=== PATIENT | female | born 1945 | race Caucasian/White ===

== ENCOUNTER → 2017-12-22 | Outpatient (CLI) | payer OTHER ==
[~2017-12-22] MED LIST: ASPI81TA82 PO; D31000CA PO; HYDR1SOL3 PO; KELP100T PO; THYR15 PO
--- NOTE | 2017-12-23 10:13 | RSPPFT ---
DATE OF PROCEDURE: 12/22/17 COMMENTS: VOLUMES DYNAMIC: FVC mildly reduced; FEV1 moderately reduced. STATIC: TLC, RV and FRC normal. FLOWS: FEV1% moderately reduced; FEF 25-75 severely reduced. DIFFUSION: Severely reduced. FLOW VOLUME LOOP: Pattern of variable intrathoracic airways obstruction. IMPRESSION: Moderate to severe obstructive ventilatory defect with reduction in diffusion consistent with emphysema. There is improvement post-bronchodilator.
== END ==
LOC: PHRSP 09:41
PROVIDERS: ATTEND Internal Medicine
DX: J44.9 Chronic obstructive pulmonary disease, unspecified (principal)
CPT/HCPCS: 36600; 82805; 94060; 94618; 94729

== ENCOUNTER 2017-12-27 11:16 | Inpatient (IN) | payer OTHER, MEDICARE ==
--- NOTE | 2017-12-21 09:16 | MB ---
cc: ETIENNE WALKER MD, DANIEL WHITE, R. STEVEN M.D. DATE OF CONSULTATION 12/15/2017 HISTORY Ms. Johnson is a 72-year-old white female with a history of squamous cell carcinoma of the larynx diagnosed in 2011. That was treated with chemoradiotherapy and recent oncology follow-up indicates that remains in remission. In 2016, she presented with a left lower lobe lesion identified as adenocarcinoma and she also had a right midlung nodule which was felt to be metastatic disease, although it was not biopsied. She was begun on palliative systemic chemotherapy and then immunotherapy. She now presents with follow-up CT and PET scan revealing a left perihilar mass suggestive of recurrent disease although inflammation or scarring cannot be excluded. She also continues to have some mild uptake in the right midlung laterally again somewhat suspicious for malignancy. No uptake is noted in the mediastinum. The patient continues to smoke a half a pack to one pack of cigarettes a day and has smoked all of her adult life 50-60 pack-years. I have no formal documentation of COPD, emphysema, although the patient says she does have the disease. She uses a Ventolin inhaler on occasion, but really does not complain of significant shortness of breath. She has had cough, but no purulent sputum or hemoptysis. No chest pain. ADDITIONAL PAST HISTORY 1. PAD 2. Osteoporosis 3. Hypothyroidism SOCIAL HISTORY She is single, lives alone. Smoking noted. Denies any alcohol use. She has two dogs at home. MEDICATIONS 1. Thyroid replacement 2. Occasional baby aspirin REVIEW OF SYSTEMS No headache or visual changes. No lightheadedness. No anginal chest pain. No prior cardiac history. No swelling in her legs. PHYSICAL EXAMINATION This is a frail elderly white female looking older than her stated age. VITAL SIGNS: Blood pressure 108/50, pulse 70, temps 97, RR 18, sat 96% room air. HEAD, EYES, EARS, NOSE, AND THROAT: Sclerae anicteric. Pharynx is clear. NECK: No adenopathy in the neck or supraclavicular region. CHEST: Scattered congestion without wheezing. CARDIAC: Regular rhythm. No harsh murmur. EXTREMITIES: No edema or cyanosis. DISCUSSION Ms. 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 She is now suspected of having recurrence possibly in both lungs or in the left hilum, although post-treatment changes are possible. I have suggested we proceed with a diagnostic bronchoscopy. I have reviewed the procedure in simple terms so that she understands what it involves and what the potential complications are including, although not limited to, anesthetic complications, pneumothorax or bleeding. I have requested pulmonary functions prior to the procedure to establish her baseline degree of emphysema. I have also asked her to stop using any aspirin. The patient is agreeable to proceed recognizing risks and benefits. R. MD MANNY Martin/DONNA /10:45 AM /8:39 AM
[2017-12-27] VITALS (8 sets, daily range): BP systolic 113–147; BP diastolic 57–70; PULSE 55–62; RESP 20; TEMP 97.5–98; O2SAT 92–100
[~2017-12-27] VITALS: Ht 165.1 cm; Wt 44.5 kg
[~2017-12-27 11:16] MED LIST changes: -HYDR1SOL3 PO; -THYR15 PO
[2017-12-27] MEDS ORDERED: THYR15 PO (12:06)
[2017-12-27] MEDS ORDERED: HYDR1SOL3 PO (12:42)
[2017-12-27] MEDS ORDERED: RESP: LIDOCAINE HCL 4% TOPICAL 4 ML KIT NEB NEB SCH (12:45)
[2017-12-27] MEDS ORDERED: RESP: ALBUTEROL 2.5 MG/3 ML NEB (SCH) INH (12:45)
[2017-12-27] MEDS ORDERED: SODIUM CHLOR 0.45% 1000 ML INJ 1,000 ML IV SCH ×2 (13:00→15:30)
[2017-12-27] MEDS ORDERED: RESP: LIDOCAINE HCL 4% PF 5 ML NEB ONE (13:26)
[2017-12-27] MEDS ORDERED: RESP: ALBUTEROL CONC 2.5 MG/0.5 ML NEB ONE (13:26)
[2017-12-27] MEDS ORDERED: RESP: ALBUTEROL 2.5 MG/IPRATROPIUM 0.5 MG NEB (PRN) NEB (15:15)
[2017-12-27] MEDS ORDERED: DO NOT ADM ANY ANTICOAGULANT DRUGS PRN (15:42)
[2017-12-27] MEDS ORDERED: LORazepam 2 MG/ML VIAL ONE (15:51)
[2017-12-27] MEDS ORDERED: MIDAZOLAM HCL 2 MG/2 ML VIAL ONE (15:53)
[2017-12-27] MEDS ORDERED: methylPREDNISolone SOD SUCC 40 MG/1 ML VIAL ONE (15:56)
[2017-12-27] MEDS ORDERED: RESP: ALBUTEROL 2.5 MG/IPRATROPIUM 0.5 MG NEB (SCH) NEB (16:00)
--- NOTE | 2017-12-27 16:27 | RADRPT ---
EXAM DATE/TIME: 12/27/2017 15:31 [facility] COMPARISON: CHEST EXPIRATION ONLY, May 20, 2016, 11:11. INDICATIONS : Post biopsy. MEDICAL HISTORY : Chronic obstructive pulmonary disease. SURGICAL HISTORY : Tonsillectomy. ENCOUNTER: Initial ACUITY: 1 day PAIN SCORE: 0/10 LOCATION: Bilateral chest FINDINGS: A single view of the chest demonstrates bilateral mixed interstitial and air space process, right gre ater than left. Blunting of both costophrenic angles possibly represent small effusions, slightly mor e prominent leftward. No pneumothorax. Right IJ Fnjetp-c-[id number] catheter with the tip projecting over t he central venous system. Heart size is normal. S-shaped scoliosis of the thoracolumbar spine.. CONCLUSION: 1. No pneumothorax post biopsy. 2. Mixed interstitial and airspace process bilaterally on the right worse on left. Possible small alysa ateral pleural effusions. Jose Alberto Schumacher MD on December 27, 2017 at 16:22 Board Certified Radiologist. This report was verified electronically.
--- NOTE | 2017-12-27 16:41 | MB ---
cc: Chris FRANCISCO DATE OF CONSULTATION: 12/27/2017 REASON FOR CONSULTATION: HISTORY OF PRESENT ILLNESS: Ms. oJhnson is a 72-year-old white female with a history of adenocarcinoma of the left lung in 2016. She presented today as an outpatient for a diagnostic bronchoscopy. The procedure went well but post extubation the patient had difficulty breathing. She received IV corticosteroids and an aerosolized bronchodilator but will require additional attention including BiPAP to stabilize her. Anesthesia is here in attendance and I have spoken to Dr. Oneal to admit her to the Intensive Care Unit for observation. Prior history is all outlined in her previous notes. Her procedure today was otherwise uncomplicated. No unusual bleeding. Chest x-ray is pending at the present time. The patient will be admitted for observation by critical care medicine. I have spoken to Dr. Oneal. I have also put in initial orders including BiPAP, a stat chest x-ray, aerosolized bronchodilator, corticosteroids and IV saline. Further diagnostic and/or therapeutic range will depend on her ongoing clinical course. MD MANNY Chance/GAL /3:29 PM /4:07 PM
[2017-12-27 16:44] LABS: AUTOMATED NEUTROPHIL # 7.4 TH/MM3 (1.8-7.7); BASOPHIL % 0.3 % (0.0-2.0); EOSINOPHIL % 0.3 % (0.0-4.0); HEMATOCRIT 34.4 % (35.0-46.0); HEMOGLOBIN 11.7 GM/DL (11.6-15.3); LYMPH % 6.9 % (9.0-44.0); LYMPHOCYTE # 0.6 TH/MM3 (1.0-4.8); MEAN CELL VOLUME 97.4 FL (80.0-100.0); MEAN CORPUSCULAR HEMOGLOBIN 33.1 PG (27.0-34.0); MEAN PLATELET VOLUME 6.1 FL (7.0-11.0); MONO % 2.6 % (0.0-8.0); MONOCYTE # 0.2 TH/MM3 (0-0.9); NEUT % 89.9 % (16.0-70.0); PLATELET COUNT 148 TH/MM3 (150-450); RED BLOOD COUNT 3.54 MIL/MM3 (4.00-5.30); RED CELL DISTRIBUTION WIDTH 17.8 % (11.6-17.2); WHITE BLOOD COUNT 8.3 TH/MM3 (4.0-11.0)
[2017-12-27] MEDS ORDERED: MISCELLANEOUS NURSING INFORMATION XX SCH (16:45)
[2017-12-27] MEDS ORDERED: RESP: ALBUTEROL 2.5 MG/IPRATROPIUM 0.5 MG NEB (PRN) INH (16:45)
[2017-12-27] MEDS ORDERED: CHLORHEXIDINE GLUCONATE 2 % 1 PACK (2 CLOTHS) TOP PRN (16:45)
[2017-12-27] MEDS: methylPREDNISolone SOD SUCC 40 MG/1 ML VIAL IV PUSH SCH (17:13)
[2017-12-27] MEDS: LORazepam 2 MG/ML VIAL IV PRN ×2 (17:14→20:55)
[2017-12-27 17:28] LABS: BICARBONATE 24.9 MEQ/L (21.0-32.0); CALCIUM 8.4 MG/DL (8.5-10.1); CREATININE 1.08 MG/DL (0.50-1.00); MAGNESIUM 2.1 MG/DL (1.5-2.5)
[2017-12-27 17:29] LABS: PHOSPHORUS 3.8 MG/DL (2.5-4.9)
[2017-12-27] MEDS ORDERED: LEVOFLOXACIN 500 MG TAB PO SCH (17:30)
--- NOTE | 2017-12-27 17:33 | MH ---
cc: VIVIEN GRACE M.D. DATE OF : 1945 DATE OF ADMISSION: 12/27/2017 ADMITTING DIAGNOSIS: HISTORY OF PRESENT ILLNESS: The patient is a 72 year-old female with a past medical history of squamous cell carcinoma of the larynx, diagnosed in 2011, status post chemotherapy. In 2015, the patient was diagnosed with adenocarcinoma of the left lung and begun on palliative systemic chemotherapy and then immunotherapy. She had a follow-up CT and PET scan showing left perihilar mass suggestive of recurrent disease. She underwent fiberoptic bronchoscopy with bronchial washing as an outpatient by Dr. Luciano. The patient was intubated for the procedure and she was extubated. However, she was in respiratory distress and the patient was given Decadron and a bronchodilator treatment. Also she was placed on BiPap 15/5 with 50% FIO2. We were asked to admit the patient to [facility] for closer observation, given her respiratory status. PAST MEDICAL HISTORY: Significant for likely severe COPD, hypothyroidism, osteoporosis, peripheral arterial disease, adenocarcinoma of the left lung, squamous cell carcinoma of the larynx, fibromyalgia, history of bipolar disorder. SOCIAL HISTORY The patient lives alone, active smoker where she smokes half a pack to one pack of cigarettes a day and has at least 50 pack-year history of smoking. No history of alcohol use. MEDICATIONS Occasional baby aspirin, thyroid supplement. FAMILY HISTORY Noncontributory to history of present illness. REVIEW OF SYSTEMS: As per HPI. The rest of the review of systems is limited as the patient is a poor historian. PHYSICAL EXAMINATION Frail elderly white female on a BiPap in mild distress. Vital signs: Afebrile, pulse of 69, blood pressure 157/68, saturation 92% on BiPap 15/5, 50% FIO2, respiratory rate of 25. HEENT: Atraumatic, normocephalic pupil equal, round and reactive to light and accommodation. Extraocular movements intact. Conjunctiva pink. Nonicteric sclerae. Oral mucosa within normal. Neck: Supple. No JVD, adenopathy or thyromegaly. Trachea midline. Cardiovascular: Regular rate and rhythm. Normal S1-S2. No murmurs, rubs or gallops noted. Pulmonary: Bilateral equal entry overall diminished. No crackles or wheezing. Abdomen: Soft, nontender, no distension. Positive bowel sounds. Extremities: No cyanosis, clubbing or edema. Neuro: No focal sensory deficit. LABORATORY DATA None available. RADIOLOGIC STUDIES: Chest x-ray post bronch showed no pneumothorax, mixed interstitial and air space opacity bilaterally. IMPRESSION 1. Acute hypoxemic and respiratory insufficiency. 2. COPD exacerbation. 3. Bilateral interstitial infiltrates. 4. Adenocarcinoma of the lung. 5. Squamous cell carcinoma of the larynx. 6. Active tobacco use. 7. Hypothyroidism. 8. History of osteoporosis. 9. Peripheral arterial disease. RECOMMENDATIONS: 1)Monitor neuro status closely and avoid any sedatives. 2)Continue with oxygen and maintain sats above 92%. Bronchodilators in the form of DuoNeb q. 4 plus q. 2 p.r.n. for shortness of breath. Continue with Solu-Medrol 40 mg IV q. 6. 3) Noninvasive positive pressure ventilation. Check ABG now. If there is any worsening in respiratory status or clinical condition, will proceed with intubation and mechanical ventilation. Patient is status post bronchoscopy with bronchial washing by Dr. Luciano. Follow up on cultures. 4)Monitor heart rate and blood pressure. Maintain MAP greater than 65 mmHg. 5)Monitor renal function I&Os, and electrolyte replacement per protocol. DC IV fluids. 6)Keep n.p.o. for now until respiratory status improves and will place on Pepcid 20 mg IV q. 12 for GI prophylaxis. 7)Place on empiric antibiotics in the form of Levaquin and monitor for signs of infections. 8)Place on sliding scale insulin, Accu-Cheks for glycemic control as the patient will be on IV steroids. 9)GI prophylaxis with Pepcid and DVT prophylaxis with SCDs. Will check labs now which include CBC and BMP. Case discussed with Dr. Luciano. MD ELIZABETH Mckinney/GAL /4:25 PM /4:42 PM KATIE
[2017-12-27] MEDS: RESP: ALBUTEROL 2.5 MG/IPRATROPIUM 0.5 MG NEB (SCH) INH ×2 (20:51→23:25)
[2017-12-27] MEDS: FAMOTIDINE 20 MG/2 ML VIAL IV PUSH SCH (20:55)
--- NOTE | 2017-12-27 21:25 | MP ---
cc: Noe FRANCISCO DATE OF SURGERY 12/27/17 PROCEDURE Bronchoscopy INDICATION Recurrent lung cancer. After informed consent was obtained, the patient underwent diagnostic bronchoscopy with general anesthesia as well as ultrasound. Examination of the mid to distal trachea was unremarkable. Examination of the right main stem bronchus, right upper lobe, lower lobes and middle lobe were all unremarkable other than scattered secretions. Examination of the left main stem bronchus down to the takeoff of the left upper lobe was normal and the left upper lobe appeared patent with no endobronchial pathology. The left lower lobe bronchus was markedly narrowed, but it was extrinsic with no endobronchial pathology. The scope was easily passed through the area of stricture and the left lower lobe orifices were all examined and normal. Using fluoroscopic guidance, the medial basilar segment of the left lower lobe was washed extensively and brushed for cytology. This was an area that was abnormal on the CT scan. Reexamination of the right upper lobe was normal endoscopically. There was a small nodular density peripherally in the right upper lobe, so again using fluoroscopic guidance the area was identified. Washings were obtained for cytology and culture and bronchial brushings were also obtained and submitted for cytology. The patient then underwent ultrasound examination of the right paratracheal, subcarinal, left paratracheal and left hilar regions. There were a few small lymph nodes noted. No particularly enlarged nodes, certainly none over 1 cm in size. I was able to biopsy the subcarinal lymph node on the right, the left paratracheal lymph node and station 10 on the left hilar region and submitted those for cytology. She tolerated the procedure well. There was no active bleeding. She is being recovered and prepared for extubation and transferred to recovery. A chest x-ray will be obtained since a number of brushings and biopsies were obtained. MD MANNY Chance/ /3:03 PM /9:12 PM
[2017-12-28] VITALS (11 sets, daily range): BP systolic 107–135; BP diastolic 54–62; PULSE 54–75; RESP 28–39; TEMP 97.8–98.3; O2SAT 91–100
[2017-12-28] MEDS: methylPREDNISolone SOD SUCC 40 MG/1 ML VIAL IV PUSH SCH ×3 (00:21→12:00)
[2017-12-28] MEDS: RESP: ALBUTEROL 2.5 MG/IPRATROPIUM 0.5 MG NEB (SCH) INH ×3 (03:53→11:42)
[2017-12-28] MEDS ORDERED: CHLORHEXIDINE GLUCONATE 2 % 1 PACK (2 CLOTHS) TOP SCH (04:00)
[2017-12-28 05:23] LABS: BICARBONATE 24.6 MEQ/L (21.0-32.0); CALCIUM 8.3 MG/DL (8.5-10.1); CREATININE 0.98 MG/DL (0.50-1.00)
[2017-12-28 05:44] LABS: AUTOMATED NEUTROPHIL # 6.8 TH/MM3 (1.8-7.7); BASOPHIL % 0.1 % (0.0-2.0); HEMATOCRIT 33.1 % (35.0-46.0); HEMOGLOBIN 11.4 GM/DL (11.6-15.3); LYMPHOCYTE # 0.2 TH/MM3 (1.0-4.8); MEAN CELL VOLUME 96.4 FL (80.0-100.0); MEAN CORPUSCULAR HEMOGLOBIN 33.2 PG (27.0-34.0); MEAN CORPUSCULAR HGB CONC 34.4 % (32.0-36.0); MEAN PLATELET VOLUME 6.6 FL (7.0-11.0); MONO % 0.8 % (0.0-8.0); MONOCYTE # 0.1 TH/MM3 (0-0.9); NEUT % 96.1 % (16.0-70.0); PLATELET COUNT 156 TH/MM3 (150-450); RED BLOOD COUNT 3.43 MIL/MM3 (4.00-5.30); RED CELL DISTRIBUTION WIDTH 17.5 % (11.6-17.2)
[2017-12-28] MEDS ORDERED: ALPRAZolam 0.5 MG TAB PO PRN (08:45)
[2017-12-28] MEDS: FAMOTIDINE 20 MG/2 ML VIAL IV PUSH SCH (08:45)
[2017-12-28] MEDS ORDERED: NICOTINE 21 MG/24 HR PATCH T-DERMAL SCH (09:00)
--- NOTE | 2017-12-28 10:23 | HHI.CCPN ---
Subjective Remarks/Hospital Course 12/28: patient insisting on leaving against medical advice. patient remains on 2L o2 by NC. weaned off BiPAP overnight. Objective Vital Signs Date Time Temp Pulse Resp B/P (MAP) Pulse Ox O2 Delivery O2 Flow Rate FiO2 12/28/17 09:00 75 12/28/17 08:00 98.3 37 128/61 (83) 91 12/28/17 07:53 Nasal Cannula 4.00 12/27/17 19:55 50 Intake and Output 12/28/17 12/28/17 12/29/17 08:00 16:00 00:00 Intake Total 100 ml Output Total 401 ml Balance -301 ml Result Diagram: 12/28/17 0351 12/28/17 0351 Other Results Laboratory Tests Test 12/27/17 16:15 12/27/17 20:32 Blood Gas Puncture Site RT RADIAL RT RADIAL Blood Gas Patient Temperature 98.6 98.6 Blood Gas HCO3 24 mmol/L (22-26) 24 mmol/L (22-26) Blood Gas Base Excess -2.9 mmol/L (-2-2) -1.1 mmol/L (-2-2) Blood Gas Oxygen Saturation 81 % (90-100) 90 % (90-100) Arterial Blood pH 7.24 (7.380-7.420) 7.36 (7.380-7.420) Arterial Blood Partial Pressure CO2 57 mmHg (38-42) 43 mmHg (38-42) Arterial Blood Partial Pressure O2 58 mmHG (61-120) 73 mmHg (61-120) Arterial Blood Oxygen Content 12.5 Vol % (12.0-20.0) 14.0 Vol % (12.0-20.0) Arterial Blood Carboxyhemoglobin 6.0 % (0-4) 3.2 % (0-4) Arterial Blood Methemoglobin 0.5 % (0-2) 1.4 % (0-2) Blood Gas Hemoglobin 11.1 G/DL (12.0-16.0) 11.0 G/DL (12.0-16.0) Oxygen Delivery Device BiPAP NASAL CANNULA Blood Gas Ventilator Setting 12/+5PEEP Blood Gas Inspired Oxygen 50 % Blood Gas Liter Flow 3 L/M Objective Remarks gen: elderly female, sitting in bed, visibly upset. heent: perrl. mucous membranes moist. neck: no jvd. trachea midline. chest: unlabored. equal chest rise. 2L nc. spo2 94% cv: rrr. sinus. abd: soft, nontender, nondistended, no guarding. extr: no peripheral edema. neuro: RASS +1. upset. no focal deficits. A/P Assessment and Plan Assessment: 72yF post-procedure day 1 s/p bronch with biopsy with andrzej- procedural respiratory failure requiring NIPPV. clinically improving. will discuss with Dr. Luciano. if patient cannot wait for Dr. luciano, she is free to leave [facility], though we recommend her stay until she can be fully evaluated by Dr. Luciano. Acute hypoxic respiratory failure requiring non-invasive positive pressure ventilation Tobacco Abuse COPD - wean o2 for goal spo2 > 90% - OOB with assist - regular diet - tobacco cessation information given. - further management per Dr. Luciano. Geoff Hobbs MD Dec 28, 2017 10:23
[2017-12-28] MEDS ORDERED: REMOVE OLD NICODERM (NICOTINE) PATCH T-DERMAL SCH (21:00)
--- NOTE | 2017-12-28 22:17 | EKG ---
Date Performed: 12/27/2017 Time Performed: 12:07:50 PTAGE: 72 years EKG: SINUS BRADYCARDIA NONSPECIFIC T-WAVE ABNORMALITY BORDERLINE ECG PREVIOUS TRACING : 01/23/2013 07.59 Since the prior tracing, there has been no significant rubio DOCTOR: Farooq Zuniga Interpretating Date/Time 12/28/2017 22:15:53
--- NOTE | 2017-12-29 13:20 | RADRPT ---
EXAM DATE/TIME: 12/27/2017 14:03 [facility] COMPARISON: CT NEEDLE BIOPSY LUNG, LEFT, May 20, 2016, 8:41. INDICATIONS : Bronchoscopy with brushings. MEDICAL HISTORY : Chronic obstructive pulmonary disease. SURGICAL HISTORY : Tonsillectomy. ENCOUNTER: Initial ACUITY: 1 day PAIN SCORE: Non-responsive. LOCATION: Bilateral chest FINDINGS: Single intraprocedural fluoroscopic image of endobronchial biopsy. Endobronchial biopsy device is not ed in a subsegmental branch of the left lower lobe. CONCLUSION: 1. Endobronchial biopsy, as above. Blas Alonso MD on December 29, 2017 at 13:16 Board Certified Radiologist. This report was verified electronically.
--- NOTE | 2018-01-02 08:14 | MD ---
cc: Noe FRANCISCO M.D. ADMISSION DATE: 12/28/2017 DISCHARGE DATE: 12/28/2017 HISTORY Ms. Johnson is a 72-year-old white female admitted overnight for observation after bronchoscopy. She has severe COPD and had smoked up to the time of admission yesterday and did well with her bronchoscopy, those notes were dictated, but was hypoxic and agitated afterward so we kept her overnight on BiPap for observation. This morning although she is agitated, she is awake, alert, oriented and simply wants to go home. I spoke to her daughter. Apparently this is not unusual behavior for her. HOSPITAL COURSE All of the bronchoscopy reports are pending. She did have a chest x-ray post bronchoscopy which revealed no evidence of pneumothorax and some a mixed interstitial and air space disease which is chronic. PHYSICAL EXAMINATION GENERAL: This morning she is awake, alert, appropriate, although she is agitated and wants to leave. VITAL SIGNS: A blood pressure is 120/60, respirations are 24, O2 sat on room air is now 95% and she is afebrile. CHEST: Clear. No significant wheezing or congestion. CARDIOVASCULAR: Regular heart rhythm. No edema. CONDITION ON DISCHARGE Ms. Johnson is stable post-observation after bronchoscopy yesterday. DISCHARGE INSTRUCTIONS I spoke to her daughter because my biggest concern is that she will go back home and smoke again and in this particular condition that could be harmful. The daughter understands that, will try to support her mother in this respect and I will see her back in the office next week for her follow-up reports. She may also benefit from treatment of the underlying COPD, although obviously stopping smoking as the primary point to address in but we will discuss that when I see her back in the office next week. I instructed the patient and her daughter that if she has any difficulty prior to followup, particularly more shortness of breath, either to call or to come back directly to the emergency room. I also reviewed this plan with Critical Care Medicine who watched her overnight. Noe Francisco MD RSHo/BETTE /12:17 PM /8:05 AM
== END 2017-12-28 13:55 | disposition home or self-care (01) | DRG 189 ==
LOC: HROP 11:16 → HRIP 11:17 → HROP 16:14 → HIME 16:14 → HROP 12-28 08:01 → UNDOADMIN 12-28 08:03 → HIME 12-28 08:03 → UNDODISIN 12-28 13:55
PROVIDERS: ADMIT Internal Medicine Critical Care Medicine; ATTEND Internal Medicine Critical Care Medicine
PROC: 0BDJ8ZX Extraction of Left Lower Lung Lobe, Via Natural or Artificial Opening Endoscopic, Diagnostic (ICD-10-PCS; principal; 2017-12-27)
PROC: 0BDC8ZX Extraction of Right Upper Lung Lobe, Via Natural or Artificial Opening Endoscopic, Diagnostic (ICD-10-PCS; 2017-12-27)
PROC: 07D78ZX Extraction of Thorax Lymphatic, Via Natural or Artificial Opening Endoscopic, Diagnostic (ICD-10-PCS; 2017-12-27)
PROC: 5A09357 Assistance with Respiratory Ventilation, Less than 24 Consecutive Hours, Continuous Positive Airway Pressure (ICD-10-PCS; 2017-12-27)
DX: J96.01 Acute respiratory failure with hypoxia (principal); C34.92 Malignant neoplasm of unspecified part of left bronchus or lung; C32.9 Malignant neoplasm of larynx, unspecified; J44.1 Chronic obstructive pulmonary disease with (acute) exacerbation; F17.210 Nicotine dependence, cigarettes, uncomplicated; Z92.21 Personal history of antineoplastic chemotherapy; Z92.25 Personal history of immunosuppression therapy; E03.9 Hypothyroidism, unspecified; M81.0 Age-related osteoporosis without current pathological fracture; I73.9 Peripheral vascular disease, unspecified; M79.7 Fibromyalgia; F31.9 Bipolar disorder, unspecified
CPT/HCPCS: 31653; 36600; 71045; 80048; 82805; 83735; 84100; 84443; 85025; 87015; 87070; 87077; 87102; 87116; 87184; 87205; 87206; 87641; 88112; 88173; 88305; 93005; 94002; 94640; 94664; J2060; J2250; J2920; J3010; J7611